=== PATIENT | male | born 1935 | race Caucasian/White ===

== ENCOUNTER 2017-01-18 07:51 | Day surgery (SDC) | payer OTHER ==
[~2017-01-18] VITALS: Ht 182.9 cm; Wt 93.4 kg
[2017-01-18] MEDS ORDERED: NS 1000P @30 MLS/HR (KVO) IV SCH (08:15)
[2017-01-18] MEDS ORDERED: LISI10TA3 PO (08:21)
[2017-01-18] MEDS ORDERED: MULT-6 PO (08:21)
[2017-01-18] MEDS ORDERED: METF500T PO (08:21)
[2017-01-18] MEDS ORDERED: ZOCO20TA PO (08:21)
[2017-01-18] MEDS ORDERED: ASPI1TAB69 PO (08:21)
[2017-01-18] MEDS ORDERED: METO25TA3 PO (08:21)
[2017-01-18] MEDS ORDERED: VITA50TA10 PO (08:21)
[2017-01-18 08:31] LABS: AUTOMATED NEUTROPHIL # 3.4 TH/MM3 (1.8-7.7); BASOPHIL % 0.8 % (0.0-2.0); EOSINOPHIL # 0.1 TH/MM3 (0-0.4); EOSINOPHIL % 2.3 % (0.0-4.0); HEMATOCRIT 38.8 % (39.0-51.0); HEMO FLAGS DIFF FINAL; LYMPH % 26.4 % (9.0-44.0); LYMPHOCYTE # 1.4 TH/MM3 (1.0-4.8); MEAN CELL VOLUME 96.3 FL (80.0-100.0); MEAN CORPUSCULAR HEMOGLOBIN 32.7 PG (27.0-34.0); MEAN CORPUSCULAR HGB CONC 33.9 % (32.0-36.0); MONO % 7.8 % (0.0-8.0); NEUT % 62.7 % (16.0-70.0); PLATELET COUNT 119 TH/MM3 (150-450); RED BLOOD COUNT 4.02 MIL/MM3 (4.50-5.90); RED CELL DISTRIBUTION WIDTH 13.5 % (11.6-17.2); WHITE BLOOD COUNT 5.4 TH/MM3 (4.0-11.0)
[2017-01-18 08:36] VITALS: BP 193/112; PULSE 68; RESP 18; TEMP 97.6; O2SAT 97
[2017-01-18 08:43] LABS: APTT (PATIENT) 27.6 SEC (24.3-30.1); PROTHROMBIN TIME - PATIENT 11.2 SEC (9.8-11.6)
[2017-01-18 09:01] LABS: BICARBONATE 31.4 MEQ/L (21.0-32.0); POTASSIUM 3.8 MEQ/L (3.5-5.1)
[2017-01-18] MEDS ORDERED: HEPARIN-NS/PF INJ 500 ML ONE (09:27)
[2017-01-18] MEDS ORDERED: VERAPAMIL HCL 5 MG/2 ML VIAL ONE (09:30)
[2017-01-18] MEDS ORDERED: HEPARIN SODIUM - IV 10,000 UNITS/10 ML VIAL ONE (09:31)
[2017-01-18] MEDS ORDERED: MIDAZOLAM HCL 2 MG/2 ML VIAL ONE (09:41)
[2017-01-18] MEDS ORDERED: SODIUM CHLORIDE 0.9% FLUSH 5 ML FLUSH IVF PRN (11:15)
[2017-01-18] MEDS ORDERED: MISC INFORMATION XX ONE (11:15)
[2017-01-18] MEDS ORDERED: hydrALAZINE HCL 20 MG/ML VIAL ONE (11:23)
[2017-01-18] MEDS ORDERED: IOHEXOL 350 MG/ML 50 ML BTL (for Cath Lab) OTHER ONE (11:34)
[2017-01-18] MEDS ORDERED: IOHEXOL 350 MG/ML 100 ML BTL (for Cath Lab) OTHER ONE (11:34)
--- NOTE | 2017-01-18 19:41 | EKG ---
Date Performed: 01/18/2017 Time Performed: 08:29:48 PTAGE: 81 years EKG: Atrial fibrillation with slow ventricular response Inferior Q waves Delayed R wave progress ion Abnormal ECG NO PREVIOUS TRACING DOCTOR: Lisset Walker Interpretating Date/Time 01/18/2017 19:39:43
[2017-01-18] MEDS ORDERED: SODIUM CHLORIDE 0.9% FLUSH 5 ML FLUSH IVF SCH (21:00)
--- NOTE | 2017-01-18 22:54 | MA ---
cc: DEEPAK BURKETT,DARIUS Villarreal DO DATE: January 18, 2017 PRIMARY CATALYST UNIT OPERATOR: Dr. Deepak Burkett PROCEDURE Left heart catheterization, coronary angiogram, moderate sedation provided for 45 minutes. PREPROCEDURE DIAGNOSIS Abnormal stress test with elevated TID, shortness of breath. POSTPROCEDURE DIAGNOSIS Severe coronary artery disease of [place] vessels, patent bypass grafts (4/4). MEDICATIONS Versed 1 milligrams. Fentanyl 50 mcg. Verapamil 2.5 mg. Nitro 200 units. Heparin. CONTRAST 140 cc FLUOROSCOPY: 14.8 minutes. MODERATE SEDATION: 45 minutes. ESTIMATED BLOOD LOSS 10 cc PROCEDURAL SUMMARY Smooth Lopes underwent a pharmacologic nuclear stress test which showed no ischemic defects but did show possible transient ischemic dilatation. Because of this he was recommended cardiac catheterization. Risks, benefits and alternatives were explained to him and he consented as such. He was brought to the lab and prepped in the usual sterile fashion. Left radial artery was accessed using a modified Seldinger technique and placement of a 5/6 [place] slender sheath. JR-4 was advanced over a J-wire to the mid forearm with some further obstruction noted. Angiogram shows possible recurrent loop. This was traversed with a Glidewire and JR-4 was then attempted to engage the CORTES. Because of curvature of the subclavian I was unable to engage the CORTES. JR-4 was then advanced to the ascending aortic root and across the aortic valve. LVEDP was measured at 13. Upon pullback no significant gradient of aortic stenosis was noted. JR-4 was then used for selective angiography of the right coronary artery which shows 100% occlusion in the mid to distal portion. JR-4 was then used for selective angiography of the SVG to PDA which is patent, and retrogradely fills the posterior lateral branch. JR-4 was then used for selective angiography of the SVG to the obtuse marginal. The proximal portion of this has a 30% lesion before a valve in the vein graft. After the anastomosis, this retrogradely fills a second obtuse marginal. JR-4 was then used for selective angiography of the saphenous vein graft to diagonal. The saphenous vein graft to diagonal is patent and does appear to have a 40% lesion in the distal portion and has touchdown to a small diagonal which retrogradely fills another small diagonal. JR-4 was then exchanged for a JL-4 and this was used for angiography of the left coronary system. Left main is normal appearing with no significant disease. LAD has a 50-60% stenosis in the proximal section and is 100% occluded distally. There is a ramus or high obtuse marginal which has a 30% lesion in the proximal portion. Left circumflex is relatively normal-appearing in the proximal portion and gives off one small obtuse marginal. In the midportion of the circumflex it becomes 100% occluded. JL-4 was then exchanged for an AFTAB catheter and this was used for angiography of the CORTES to LAD. CORTES to LAD is patent with no significant disease with the distal LAD being somewhat of a small vessel with diffuse disease at 40% throughout. AFTAB catheter was then removed over a J-wire. TR band was placed over radial sheath for hemostasis. The patient left the cardiac catheterization lab cardiovascularly stable. IMPRESSION 1. Severe coronary artery disease of the [place] vessels. 2. Patent bypass grafts (/). RECOMMENDATIONS 1. Mr. Lopes appears to have significant [place] coronary artery disease but has patent bypass grafts throughout. 2. We will continue with aggressive medical management. 3. We will follow up with Dr. Burkett in 2-4 weeks. Thank you for allowing me to see Smooth Lopes. If there are any questions, please to not hesitate to call. Darius Henriquez DO VGP/MARIA M /9:01 PM /10:42 PM
== END 2017-01-18 16:00 | disposition home or self-care (01) ==
LOC: HDIC 07:51 → HDOC 07:51
PROVIDERS: ATTEND Nuclear Medicine Nuclear Cardiology
DX: I25.10 Atherosclerotic heart disease of native coronary artery without angina pectoris (principal); I48.91 Unspecified atrial fibrillation; I34.0 Nonrheumatic mitral (valve) insufficiency; E78.5 Hyperlipidemia, unspecified; Z79.01 Long term (current) use of anticoagulants
CPT/HCPCS: 80048; 85025; 85610; 85730; 93005; 93454; C1769; C1893; J0360; J1644; J2250; J3010; J7030; Q9967